=== PATIENT | female | born 1955 | race Caucasian/White ===

== ENCOUNTER 2016-10-23 13:18 | Emergency (ER) | payer MEDICAID ==
--- NOTE | 2016-10-28 17:50 | ER ---
ADMIT: 10/23/2016 RM/LOC: ER [facility] MR#: [id number] [id number] [place] [address] Emergency Room Report SEX: F AGE: 61 : 1955 DATE: 10/23/2016 HISTORY OF PRESENT ILLNESS: This 61-year-old female, who presents after falling at a gas station prior to arrival. States she was going to put her cigarette in the receptacle, was going to fix it when she fell and struck the back of her head. Denies loss of consciousness. No changes in vision. No nausea or vomiting. Does state she has had some urinary frequency and burning with urination in the past couple days. Rates the pain in her head as a 10/10. Does have a past medical history for PTSD, CVA, 2 heart attacks, x3, and hysterectomy. She was being transported by [facility] from a psychiatric facility in [place] to [place]. She does have multiple allergies to psychiatric medications. States she has pain in her hands and feet secondary to some neuropathy. Smokes a 5th of a pack per day. COURSE IN THE EMERGENCY ROOM: The patient was seen and examined. GENERAL: Afebrile and nontoxic. No acute distress. HEAD: Normocephalic. EYES: She does have some ecchymosis under the left eye as well as a small contusion on the posterior right head. Eyes equal and reactive. Extraocular muscles intact. NECK: Nontender. She has a full range of motion. ENT: No obvious dental injuries. NEURO: She is alert and oriented. She moves upper and lower extremities. She has normal gait. Cranial nerves are normal. ABDOMEN: Soft and nontender. SKIN: Intact. No lacerations or abrasions. I did get a CT of her head today, negative for any acute hemorrhage or infarction. UA was also unremarkable. She was given 1 g of Tylenol. IMPRESSION: 1. Posterior head contusion. 2. Posttraumatic stress disorder with psychiatric comorbidities. DISPOSITION: Patient was discharged to continue her transport to her facility in [place]. Ice to the head as needed. Tylenol and Motrin as needed for pain. Return with worsening signs or symptoms. Follow up with regular doctor. Continue home medications as prescribed. Questions sought and answered to best of my ability and patient's satisfaction. She was discharged in stable condition. SCOT Nickerson / Melquiades Mortensen MD / ciarra JOB #: [id number] CC: Melquiades Mortensen MD, Attending Physician
== END 2016-10-23 14:55 | disposition home or self-care (01) ==
LOC: ER 13:18
DX: S00.03XA Contusion of scalp, initial encounter (principal); F43.10 Post-traumatic stress disorder, unspecified; F17.210 Nicotine dependence, cigarettes, uncomplicated; E11.9 Type 2 diabetes mellitus without complications; I25.2 Old myocardial infarction; Z90.710 Acquired absence of both cervix and uterus; Z86.73 Personal history of transient ischemic attack (TIA), and cerebral infarction without residual deficits; Z98.890 Other specified postprocedural states; Z79.84 Long term (current) use of oral hypoglycemic drugs; Z79.82 Long term (current) use of aspirin; Z79.899 Other long term (current) drug therapy; Z88.8 Allergy status to other drugs, medicaments and biological substances; W18.30XA Fall on same level, unspecified, initial encounter; Y92.524 Gas station as the place of occurrence of the external cause